=== PATIENT | male | born 1955 | race Caucasian/White ===

== ENCOUNTER 2018-12-30 12:12 | Day surgery (SDC) | payer OTHER ==
[~2018-12-30] VITALS: Ht 172.7 cm; Wt 66.6 kg
[2018-12-30 13:09] VITALS: Ht 172.7 cm; Wt 66.6 kg
[2018-12-30] MEDS ORDERED: MELOXICAM (13:12)
[2018-12-30 13:45] VITALS: BP 117/83; PULSE 68; RESP 22
[2018-12-30] MEDS ORDERED: MIDAZOLAM 1 MG/ML 2 ML INJ ONE ×3 (16:22→16:23)
[2018-12-30] MEDS ORDERED: FENTAnyl 50 MCG/ML VIAL ONE (16:22)
== END 2018-12-30 15:00 | disposition home or self-care (01) ==
LOC: GIL 12:12
PROVIDERS: ATTEND Internal Medicine Gastroenterology
DX: Z12.11 Encounter for screening for malignant neoplasm of colon (principal); K64.8 Other hemorrhoids; K57.30 Diverticulosis of large intestine without perforation or abscess without bleeding
CPT/HCPCS: 45378; J2250; J3010; Z7610